=== PATIENT | female | born 1980 ===

== ENCOUNTER 2017-08-27 10:56 | Outpatient (CLI) | payer OTHER | END 2017-08-27 11:13 | disposition home or self-care (01) | LOC: LAB 10:56 | DX: Z34.81 Encounter for supervision of other normal pregnancy, first trimester (principal); R82.79 Other abnormal findings on microbiological examination of urine ==

== ENCOUNTER 2017-10-01 11:33 | Outpatient (CLI) | payer OTHER | END 2017-10-01 16:56 | disposition home or self-care (01) | LOC: LAB 11:33 | DX: Z34.82 Encounter for supervision of other normal pregnancy, second trimester (principal) ==

== ENCOUNTER 2018-01-28 12:22 | Outpatient (CLI) | payer OTHER | END 2018-01-28 13:16 | disposition home or self-care (01) | LOC: NST 12:22 | DX: Z34.83 Encounter for supervision of other normal pregnancy, third trimester (principal) ==

== ENCOUNTER 2018-02-25 14:45 | Inpatient (IN) | payer OTHER ==
[~2018-02-25] VITALS: Ht 160 cm; Wt 3.2 kg
== END 2018-03-16 14:52 | disposition home or self-care (01) | DRG 766 ==
LOC: LDR 03-13 07:00 → OB/GYN 03-13 10:17 → O/R 03-13 10:17 → LDR 03-13 14:45 → OB/GYN 03-13 14:48
PROVIDERS: Obstetrics & Gynecology
PROC: 0UB70ZZ Excision of Bilateral Fallopian Tubes, Open Approach (ICD-10-PCS; 2018-03-13)
PROC: 4A1HXCZ Monitoring of Products of Conception, Cardiac Rate, External Approach (ICD-10-PCS; 2018-03-13)
PROC: 10D00Z1 Extraction of Products of Conception, Low, Open Approach (ICD-10-PCS; principal; 2018-03-13 07:00)
DX: O34.211 Maternal care for low transverse scar from previous cesarean delivery (principal); O75.82 Onset (spontaneous) of labor after 37 completed weeks of gestation but before 39 completed weeks gestation, with delivery by (planned) cesarean section; Z3A.39 39 weeks gestation of pregnancy; Z37.0 Single live birth; Z30.2 Encounter for sterilization

== ENCOUNTER → 2018-03-26 12:09 | Outpatient (CLI) | payer OTHER | END | disposition home or self-care (01) | LOC: LAB 12:09 | DX: T14.8XXA Other injury of unspecified body region, initial encounter (principal) ==